=== PATIENT | female | born 1960 | race Caucasian/White ===

== ENCOUNTER 2020-07-04 13:06 | Emergency (ER) | payer MEDICAID ==
[~2020-07-04] VITALS: Ht 175.3 cm; Wt 87.2 kg
[2020-07-04 13:09] VITALS: BP 141/87
--- NOTE | 2020-07-04 13:34 | NUR ---
PT PRESENTED TO ED D/T LEFT ELBOW "LUMP" X3 WEEKS.
--- NOTE | 2020-07-04 14:12 | NUR ---
PT LYING ON GURNEY. NO NEEDS AT THIS TIME. AWAITING ORDERS FROM PROVIDER.
--- NOTE | 2020-07-04 14:29 | NUR ---
PT BEING DISCHARGED HOME IN A STABLE CONDITION. DC INSTRUCTIONS DISCUSSED WITH PT. PT VERBALIZED UNDERSTANDING. NO FURTHER QUESTIONS OR CONCERNS EXPRESSED AT THAT TIME. PT TO AMBULATED WITH RN TO DC DESK. STEADY GAIT.
== END 2020-07-04 14:31 | disposition home or self-care (01) ==
LOC: ED 13:29
DX: M70.22 Olecranon bursitis, left elbow (principal); F17.200 Nicotine dependence, unspecified, uncomplicated
CPT/HCPCS: 99282; 99283